=== PATIENT | male | born 1985 | race Caucasian/White ===

== ENCOUNTER → 2021-02-01 | Outpatient (CLI) | payer OTHER ==
--- NOTE | 2021-02-01 20:57 | XR ---
EXAMINATION TYPE: XR chest 2V DATE OF EXAM: 02/01/2021 COMPARISON: None. HISTORY: Chest pain into spine. TECHNIQUE: Frontal and lateral views of the chest are obtained. FINDINGS: There is no focal air space opacity, pleural effusion, or pneumothorax seen. The cardiac silhouette size is within normal limits. The osseous structures are intact. IMPRESSION: No acute cardiopulmonary process.
== END ==
LOC: RADXRMAIN 15:28
PROVIDERS: ATTEND Nurse Practitioner Family
DX: R07.89 Other chest pain (principal)
CPT/HCPCS: 71046

== ENCOUNTER → 2021-02-02 | Outpatient (CLI) | payer OTHER ==
--- NOTE | 2021-02-02 10:44 | XR ---
EXAMINATION TYPE: XR thoracic spine complete DATE OF EXAM: 02/02/2021 CLINICAL HISTORY: Thoracic spine pain. TECHNIQUE: Frontal, lateral, and swimmer's view of thoracic spine are obtained. COMPARISON: None. FINDINGS: Thoracic spine show satisfactory alignment without evidence of acute fracture or dislocatio n. Vertebral body heights and disc space heights are preserved. Visualized ribs are intact bilateral ly. IMPRESSION: As above.
== END ==
LOC: RADXRMAIN 09:38
PROVIDERS: ATTEND Family Medicine
DX: M54.6 Pain in thoracic spine (principal)
CPT/HCPCS: 72072

== ENCOUNTER 2021-03-12 08:11 | Day surgery (SDC) | payer OTHER ==
[2021-03-08 09:10] VITALS: BMI 25.7
[~2021-03-12 08:11] MED LIST: ACETAMINOPHEN TAB 500 MG TAB PO PRN; DEXAMETHASONE SOD PHOSPHATE 4 MG/ML 1 ML VIAL IV ONE; HEPARIN SODIUM,PORCINE/PF 5,000 UNIT/0.5 ML SYRINGE SQ PRN; HYDROmorphone 0.5 MG/0.5 ML SYRINGE IVP PRN; LIDOCAINE 1% (10MG/ML) FOR IV START INTRADERMA PRN; ONDANSETRON 4 MG/2 ML VIAL IVP ONE; Pre Op ABX Message 1 EACH MISC MISCELLANE ONE; SCOPOLAMINE 1.5MG/72HR PATCH TRANSDERM ONE
[2021-03-12] MEDS: LACTATED RINGERS 1,000 ML IV SCH ×2 (08:35→09:36)
--- NOTE | 2021-03-12 09:18 | P.GSHP ---
History of Present Illness H&P Date: 03/12/21 Chief Complaint: Internal and external hemorrhoids Is a 36 she'll male who presents today for internal and external hemorrhoidectomy. He's had issues with rectal pain and bleeding and itching Past Medical History Past Medical History: Thyroid Disorder Additional Past Medical History / Comment(s): Hemorrhoids. History of Any Multi-Drug Resistant Organisms: None Reported Past Surgical History: No Surgical Hx Reported Additional Past Surgical History / Comment(s): EGD. Past Anesthesia/Blood Transfusion Reactions: No Reported Reaction Past Psychological History: No Psychological Hx Reported Smoking Status: Current every day smoker Past Alcohol Use History: None Reported Additional Past Alcohol Use History / Comment(s): Smokes 3/4 ppd X15 yrs. Past Drug Use History: Marijuana Additional Drug Use History / Comment(s): Uses Marijuana occasionally. Aware no use 24 hrs prior to procedure. - Past Family History Mother Family Medical History: No Reported History Medications and Allergies Home Medications Medication Instructions Recorded Confirmed Type Levothyroxine Sodium [Synthroid] 75 mcg PO QAM 03/08/21 03/12/21 History Allergies Allergy/AdvReac Type Severity Reaction Status Date / Time bee venom protein (honey bee) Allergy Unknown Verified 03/12/21 08:32 Surgical - Exam Vital Signs Temp Pulse Resp BP Pulse Ox 98.0 F 76 18 144/96 99 03/12/21 08:22 03/12/21 08:22 03/12/21 08:22 03/12/21 08:22 03/12/21 08:22 - General well developed, well nourished, no distress - Eyes PERRL - ENT normal pinna - Neck no masses - Respiratory normal expansion - Cardiovascular Rhythm: regular - Abdomen Abdomen: soft, non tender - Rectum Internal and external hemorrhoids Assessment and Plan Assessment: Internal and external hemorrhoids. We'll perform hemorrhoidectomy
[2021-03-12] MEDS ORDERED: SUCCINYLCHOLINE CHLORIDE 100 MG/5 ML SYR IV ONE (09:32)
[2021-03-12] MEDS ORDERED: LIDOCAINE 1% INJ 10MG/ML (20 ML MDV) ONE (09:32)
[2021-03-12] MEDS ORDERED: PROPOFOL 10 MG/ML 20 ML VIAL IV ONE (09:32)
[2021-03-12] MEDS ORDERED: fentaNYL (PF) 50 MCG/ML 2 ML AMP ONE (09:32)
[2021-03-12] MEDS ORDERED: MIDAZOLAM 2 MG/2 ML VIAL ONE (09:32)
[2021-03-12] MEDS ORDERED: LIDOCAINE 1%-EPI 1:100,000 20 ML VIAL SQ ONE (10:04)
--- NOTE | 2021-03-12 10:27 | P.OP ---
Date of Procedure: 03/12/21 Preoperative Diagnosis: Internal and external hemorrhoids Postoperative Diagnosis: Internal and external hemorrhoids Procedure(s) Performed: Internal and external hemorrhoidectomy Anesthesia: KATELYNN Surgeon: Gagandeep Herrera Pathology: other (Internal and external hemorrhoids) Condition: stable Disposition: PACU Description of Procedure: The patient's placed on the operative table in the prone position. He has been intubated and received general anesthesia. His anus prepped and draped in sterile fashion. The anus was anesthetized 1% local Xylocaine. The patient had a large left lateral hemorrhoidal column. This was grasped the with a pair of Allis clamps. Then using the Harmonic scissors the rectus performed. The right anterior and right posterior hemorrhoid columns were removed in identical fashion. Using the Harmonic scissors. There is no bleeding seen from the anus. Patient top procedure well and was sent to recovery room stable condition.
[2021-03-12 10:34] VITALS: TEMP 97.6
[2021-03-12 11:49] VITALS: RESP 20
[2021-03-12 12:07] VITALS: BP 125/85; PULSE 68
== END 2021-03-12 12:27 | disposition home or self-care (01) ==
LOC: OR 08:11
PROVIDERS: ATTEND Surgery
DX: K64.8 Other hemorrhoids (principal); K64.4 Residual hemorrhoidal skin tags; E07.9 Disorder of thyroid, unspecified; Z98.890 Other specified postprocedural states; F17.210 Nicotine dependence, cigarettes, uncomplicated; Z79.890 Hormone replacement therapy; Z91.030 Bee allergy status
CPT/HCPCS: 88304; 46260; J2250; J1100; J0690; J2405; J2001; J3010; J0330; J2704

== ENCOUNTER 2021-03-13 15:33 | Emergency (ER) | payer OTHER ==
[2021-03-13 15:44] VITALS: RESP 18; TEMP 97.9
[2021-03-13] MEDS ORDERED: KETOROLAC 15 MG/ML 1 ML VIAL IM STA (16:24)
[2021-03-13] MEDS ORDERED: HYDROmorphone 0.5 MG/0.5 ML SYRINGE IM STA (17:10)
--- NOTE | 2021-03-13 17:27 | ED ---
General Adult HPI - General Chief complaint: Abdominal Pain Stated complaint: post op pain Time Seen by Provider: 03/13/21 16:04 Source: patient Mode of arrival: ambulatory Limitations: no limitations - History of Present Illness Initial comments: Patient is a 36-year-old male presenting to the emergency Department with complaints of a postop pain. Patient states yesterday he had hemorrhoids removed by Dr. Herrera. He was given scripts for pain control and stool softeners. Patient states he even doubled up on the pain medicine about an hour ago and it has not been helping. He is extremely uncomfortable, he describes the pain as pressure, burning and sharp at times. He states he did feel some nausea when he tried to have a bowel movement but no vomiting, no fevers or chills. He denies any chest pain or shortness of breath. He denies any abdominal pain. He is no further complaints at this time. - Related Data Home Medications Medication Instructions Recorded Confirmed Levothyroxine Sodium [Synthroid] 75 mcg PO QAM 03/08/21 03/13/21 Acetaminophen Tab [Tylenol] 650 mg PO Q6H PRN 03/13/21 03/13/21 Butalb/APAP/Caff 50-325-40Mg 1 tab PO Q8H PRN 03/13/21 03/13/21 [Fioricet 50-325-40] Mag Hydrox/Al Hydrox/Simeth 10 - 20 ml PO QID PRN 03/13/21 03/13/21 [Maalox] Previous Rx's Medication Instructions Recorded Docusate [Colace] 100 mg PO BID #20 capsule 03/12/21 oxyCODONE HCL [OxyIR] 5 mg PO Q6H PRN 3 Days #10 tab 03/12/21 Ketorolac [Toradol] 10 mg PO Q8HR #10 tab 03/13/21 Ondansetron Odt [Zofran Odt] 4 mg PO Q8HR PRN #10 tab 03/13/21 Allergies Allergy/AdvReac Type Severity Reaction Status Date / Time bee venom protein (honey bee) Allergy Unknown Verified 03/13/21 16:58 Review of Systems ROS Statement: Those systems with pertinent positive or pertinent negative responses have been documented in the HPI. ROS Other: All systems not noted in ROS Statement are negative. Past Medical History Past Medical History: Thyroid Disorder Additional Past Medical History / Comment(s): Hemorrhoids. History of Any Multi-Drug Resistant Organisms: None Reported Past Surgical History: No Surgical Hx Reported Additional Past Surgical History / Comment(s): EGD. Past Anesthesia/Blood Transfusion Reactions: No Reported Reaction Past Psychological History: No Psychological Hx Reported Smoking Status: Current every day smoker Past Alcohol Use History: None Reported Past Drug Use History: Marijuana - Past Family History Mother Family Medical History: No Reported History General Exam - General Exam Comments Initial Comments: GENERAL: Patient is well-developed and well-nourished. Patient is nontoxic and in mild distress. HEAD: Atraumatic, normocephalic. EYES: Pupils equal round and reactive to light, extraocular movements intact, sclera anicteric, conjunctiva are normal. Eyelids were unremarkable. ENT: Nares patent, oropharynx clear without exudates. Moist mucous membranes. NECK: Normal range of motion, supple without lymphadenopathy or JVD. LUNGS: Unlabored respirations. Breath sounds clear to auscultation bilaterally and equal. No wheezes rales or rhonchi. HEART: Regular rate and rhythm without murmurs, rubs or gallops. ABDOMEN: Soft, nontender, normoactive bowel sounds. No guarding, no rebound. No masses appreciated. : Deferred MUSCULOSKELETAL: Normal extremities with adequate strength and normal range of motion, no pitting or edema. No clubbing or cyanosis. NEUROLOGICAL: Patient is alert and oriented x 3. Normal speech, normal gait. PSYCH: Normal mood, normal affect. SKIN: Warm, Dry, normal turgor, no rashes or lesions noted. Limitations: no limitations Rectal exam: Present: normal inspection. Absent: hemorrhoids, mass Course Vital Signs 03/13/21 03/13/21 15:41 16:44 Temperature 97.9 F Pulse Rate 73 64 Respiratory 18 18 Rate Blood Pressure 157/102 147/97 O2 Sat by Pulse 99 98 Oximetry Medical Decision Making - Medical Decision Making 36-year-old male presenting for postop pain after having hemorrhoids removed yesterday by Dr. Herrera. No fevers, vitals are stable, he is moderately uncomfortable. No acute findings on exam, no bleeding. He was given 30 mg of Toradol reports improvement in his symptoms. I did speak with Dr. Herrera who is okay with patient being discharged home, he did order some Rosholt's to try at home. Patient states that he is feeling much improvement with the Toradol is requesting some Toradol at home. I will give him a few tablets of this. Recommend continuing with the stool softeners. He can follow-up with Dr. Dorsey in the office. Return parameters were discussed with the patient he verbalizes understanding. He is discussed with Dr. Robison. Disposition Clinical Impression: Post-op pain Disposition: HOME SELF-CARE Condition: Stable Instructions (If sedation given, give patient instructions): Hemorrhoidectomy (DC) Additional Instructions: Please return to the Emergency Department if symptoms worsen or any other concerns. Recommend continuing with your stool softeners as discussed. Trial of Toradol for pain control, zofran for any nausea. Follow-up with your surgeon. Prescriptions: Ketorolac [Toradol] 10 mg PO Q8HR #10 tab Ondansetron Odt [Zofran Odt] 4 mg PO Q8HR PRN #10 tab PRN Reason: Nausea Is patient prescribed a controlled substance at d/c from ED?: No Referrals: Joseluis Pavon DO [Primary Care Provider] - 1-2 days Gagandeep Herrera MD [STAFF PHYSICIAN] - 1-2 days Time of Disposition: 17:27
[2021-03-13 17:44] VITALS: BP 145/91; PULSE 61
== END 2021-03-13 17:46 | disposition home or self-care (01) ==
LOC: EC 15:33
DX: G89.18 Other acute postprocedural pain (principal); F12.90 Cannabis use, unspecified, uncomplicated; E07.9 Disorder of thyroid, unspecified; F17.200 Nicotine dependence, unspecified, uncomplicated
CPT/HCPCS: 99283; 96372; J1885

== ENCOUNTER → 2023-10-10 | Outpatient (CLI) | payer OTHER ==
--- NOTE | 2023-10-10 07:52 | US ---
EXAMINATION TYPE: US liver DATE OF EXAM: 10/10/2023 COMPARISON: NONE CLINICAL INDICATION: Male, 38 years old with history of R74.8 ABN LEVELS; elevated liver enzymes TECHNIQUE: Multiple sonographic images of the right upper quadrant are obtained. FINDINGS: EXAM MEASUREMENTS: Liver Length: 14.7 cm Gallbladder Wall: 0.2 cm CBD: 0.2 cm Right Kidney: 10.2x4.7x4.8 cm [employer] NOTES: Pancreas: Tail obscured by overlying bowel gas Liver: increased echogenicity, focal fatty sparring adjacent to GB Gallbladder: wnl Evidence for sonographic Henry's sign: No CBD: wnl Right Kidney: No hydronephrosis or masses seen soem limitations due to bowel and body habitus IMPRESSION: 1. Hepatic steatosis with areas of focal fatty sparing.
== END | disposition home or self-care (01) ==
LOC: RADUSWWP 06:59
PROVIDERS: ATTEND Family Medicine
DX: K76.0 Fatty (change of) liver, not elsewhere classified (principal); R74.8 Abnormal levels of other serum enzymes
CPT/HCPCS: 76705